=== PATIENT | female | born 1990 | race Caucasian/White ===

== ENCOUNTER 2017-06-13 06:38 | Inpatient (IN) | payer MEDICAID ==
[~2017-06-13] VITALS: Ht 165.1 cm; Wt 75.9 kg
[2017-06-13] MEDS ORDERED: LACTATED RINGER'S 1,000 ML IV SCH (06:50)
[2017-06-13 06:56] VITALS: BP 117/76; PULSE 59; RESP 18
[2017-06-13] MEDS ORDERED: MISOPROSTOL 200 MCG TAB PR PRN ×2 (07:00→13:30)
[2017-06-13] MEDS ORDERED: OXYTOCIN 30 UNITS/LR 500 ML IV PRN ×2 (07:00→13:30)
[2017-06-13] MEDS ORDERED: CEFAZOLIN 2 GM/50 ML (PMX) 50 ML IV SCH (07:00)
[2017-06-13] MEDS ORDERED: METHYLERGONOVINE 0.2 MG INJ IM PRN ×2 (07:00→13:30)
[2017-06-13] MEDS ORDERED: CARBOPROST 250 MCG INJ IM PRN ×2 (07:00→13:30)
[2017-06-13] MEDS ORDERED: OXYTOCIN 30 UNITS/LR 500 ML IV SCH (07:00)
[2017-06-13] MEDS ORDERED: PREN1TAB13 PO (07:24)
[2017-06-13] MEDS ORDERED: FER325 PO (07:25)
[2017-06-13] MEDS ORDERED: CALC600T24 PO (07:25)
[2017-06-13 08:02] LABS: BASOPHILS % 0.2 % (0.0-2.0); EOSINOPHILS # 0.1 10^3/ul (0.0-0.5); EOSINOPHILS % 1.3 % (0.0-7.0); HEMATOCRIT 36.8 % (37.0-47.0); HEMOGLOBIN 12.4 g/dl (12.0-16.0); MEAN CORPUSCULAR HEMOGLOBIN 30.2 pg (29.0-33.0); MEAN CORPUSCULAR HGB CONC 33.7 g/dl (32.0-37.0); MEAN CORPUSCULAR VOLUME 89.5 fl (82.0-101.0); MEAN PLATELET VOLUME 11.9 fl (7.4-10.4); MONOCYTE # 0.8 10^3/ul (0.3-0.9); MONOCYTES % 8.4 % (0.0-11.0); NEUTROPHIL # 6.1 10^3/ul (1.6-7.5); NEUTROPHILS % 67.9 % (39.0-77.0); PLATELET COUNT 171 10^3/UL (140-415); RED BLOOD COUNT 4.11 10^6/ul (4.20-5.40); RED CELL DISTRIBUTION WIDTH 13.4 % (11.5-14.5); WHITE BLOOD COUNT 9.1 10^3/ul (4.8-10.8)
[2017-06-13 09:03] LABS: INR 0.89; PT RATIO 0.9
[2017-06-13 09:04] LABS: PARTIAL THROMBOPLASTIN TIME 28.3 Sec (25.0-35.0)
[2017-06-13] MEDS ORDERED: ONDANSETRON 4 MG INJ ONE (09:39)
[2017-06-13] MEDS ORDERED: METOCLOPRAMIDE 10 MG INJ ONE (09:39)
[2017-06-13] MEDS ORDERED: morphine SULFATE/PF (10 MG/10 ML) INJ ONE (09:40)
[2017-06-13] MEDS ORDERED: DEXAMETHASONE 4 MG/ML 1 ML INJ ONE (09:40)
[2017-06-13] MEDS ORDERED: PHENYLephrine (100 MCG/ML) 5ML SYG ONE (09:40)
[2017-06-13] MEDS ORDERED: KETOROLAC 30 MG INJ ONE (09:40)
[2017-06-13] MEDS ORDERED: OXYTOCIN 10 UNIT INJ ONE ×2 (09:40)
[2017-06-13] MEDS ORDERED: CITRIC ACID/NA CITRATE 30 ML CUP ONE (09:43)
[2017-06-13] MEDS ORDERED: CITRIC ACID/NA CITRATE 30 ML CUP PO ONE (09:50)
[2017-06-13] MEDS ORDERED: NALOXONE (0.4 MG/ML) INJ IV PRN (10:30)
[2017-06-13] MEDS ORDERED: KETOROLAC 30 MG INJ IV PRN (10:30)
[2017-06-13] MEDS ORDERED: ACETAMINOPHEN 500 MG TAB PO PRN (10:30)
[2017-06-13] MEDS ORDERED: morphine 2 MG INJ IV PRN (10:30)
[2017-06-13] MEDS ORDERED: HYDROmorphONE 0.5 MG/0.5 ML SYG IV PRN ×2 (10:30)
[2017-06-13] MEDS ORDERED: DIPHENHYDRAMINE 50 MG INJ IV PRN (10:30)
[2017-06-13] MEDS ORDERED: ONDANSETRON 4 MG INJ IV PRN (10:30)
[2017-06-13] MEDS ORDERED: morphine 4 MG/ML VIAL IV PRN (10:30)
[2017-06-13] MEDS ORDERED: KETOROLAC 15 MG INJ IV PRN (10:30)
[2017-06-13] MEDS ORDERED: NALBUPHINE HCL (10 MG/1 ML) INJ IV PRN (10:30)
[2017-06-13] MEDS ORDERED: HYDROCODONE/APAP (5/325) TAB PO PRN (10:30)
--- NOTE | 2017-06-13 10:46 | HP ---
Date/Time of Note Date/Time of Note DATE: 06/13/17 TIME: 10:45 OB - History Hx of Present Free Text/Dictation 39+wks ,previous c/section scheduled Care: None Ultrasounds: Normal mid trimester US Obstetrical Complications: None Medical Complications: None Past Family/Social History * Past Medical, Surgical, Family and Obstetric Histories reviewed from chart. OB Admission Exam Vital Signs Vital Signs Vital Signs Date Time Temp Pulse Resp B/P Pulse Ox O2 Delivery O2 Flow Rate FiO2 06/13/17 06:56 98.6 59 18 117/76 Room Air Physical Exam Heart: Rhythm Normal Abdomen: WNL Extremities: Normal Reflexes: Normal Membranes: Intact Heart Rate: 140's Accelerations: Accelerations Present Decelerations: No Decelerations Varibility: Moderate Contractions on Admission: None Last 72 hours Lab Results CBC & BMP 06/13/17 07:15 OB Assessment/Plan Reason for admission: section Plan: Section GARRISON BELLA M.D. Jun 13, 2017 10:46
--- NOTE | 2017-06-13 10:47 | OPPN ---
Date/Time of Note Date/Time of Note DATE: 06/13/17 TIME: 10:46 Operative Report Preoperative Diagnosis 39+wks ,previous c/section scheduled Postoperative Diagnosis 39+wks ,previous c/section scheduled Operation/Procedure Performed Repeat c/section Surgeon see signature line assistant curator Anesthesia: spinal Estimated blood loss: other (500) Transfusion Required none Specimen placenta Grafts/Implants none Complications none GARRISON BELLA M.D. Jun 13, 2017 10:47
--- NOTE | 2017-06-13 10:48 | OPR ---
Operative Report Planned Procedure Free Text/Dictation 39+wks ,previous c/section scheduled Procedure date Jun 13, 2017 Procedure(s) Repeat c/section Performed by see signature line Assisting provider: GARRISON BELLA M.D. Anesthesiologist: MARGIE JOHNSON MD Pre-procedure diagnosis 39+wks ,previous c/section scheduled Anesthesia Type: spinal Procedure Description Under satisfactory [] anesthesia, the patient was prepped and draped and placed in a supine position, tilted to the left. Pfannenstiel incision was made, carried through the subcutaneous tissue. Bleeders brought under control with electrocautery. Fascia incised to the length of the incision. Rectus muscles from the fascia, divided midline. Peritoneum exposed, entered through a transverse incision. Exploration of abdomen revealed gravid uterus. Bladder flap was developed. Transverse incision was made in the lower segment of the uterus. Amniotic sac ruptured. [] amniotic fluid noted. [] Nasal oropharyngeal suction was performed. The baby was handed to the team for immediate attention. The placenta was delivered manually intact. Uterine cavity was cleaned with wet sponge and drainage established. Uterus closed in 2 layers using [] in continuous fashion. Peritoneal cavity irrigated with warm saline. Sponge, needle and instrument count reported to be correct. Abdominal peritoneum closed with [] continuously. Rectus muscle approximated with []. Fascia closed with [], and skin closed with dermoband. Estimated blood loss [600 ]mL. Urine bag contained []mL of urine Post-Procedure Findings: Live Baby [], Apgars [] and [], weight [], position [], [] presentation []cord. Specimen(s): yes (see below) (placenta) Grafts/Implants: no Complication(s): no Disposition: PACU Physician Certification I, the undersigned physician, hereby certify that I have discussed the procedure described in this consent form with this patient (or the patient's legal transportation services representative), including: * The risk and benefits of the procedure; * Any adverse reactions that may reasonably be expected to occur; * Any alternative efficacious methods of treatment which may be medically viable ; * The potential problems that may occur during recuperation; * Potential for blood transfusion and associated risks/benefits; and * Any research or economic interest I may have regarding this treatment. I further certify that the patient/legally responsible person was encouraged to ask question and that all questions were answered. GARRISON BELLA M.D. Jun 13, 2017 10:48
[2017-06-13 12:50] VITALS: BP 120/81; PULSE 79; RESP 18
[2017-06-13 13:30] VITALS: BP 126/73; RESP 18
[2017-06-13] MEDS ORDERED: LANOLIN 7 GM TUBE TOP PRN (13:30)
[2017-06-13] MEDS ORDERED: OXYCODONE/ACETAMINOPHEN (5/325) TAB PO PRN (13:30)
[2017-06-13 14:45] VITALS: BP 115/76; PULSE 71; RESP 18
[2017-06-13 16:00] VITALS: BP_SYST 110; BP_SYST 125; BP_DIAS 75; BP_DIAS 78; PULSE 63; PULSE 79; RESP 18
[2017-06-13] MEDS: LACTATED RINGER'S 1,000 ML IV SCH (16:59)
[2017-06-13 19:30] VITALS: BP 114/64; PULSE 64; RESP 18
[2017-06-13] MEDS: SENNA/DOCUSATE NA (8.6MG/50MG) TAB PO SCH (20:58)
[2017-06-14] MEDS: LACTATED RINGER'S 1,000 ML IV SCH ×4 (00:34→21:22)
[2017-06-14 04:10] VITALS: BP 101/62; PULSE 65; RESP 18
[2017-06-14 07:30] VITALS: BP 113/72; PULSE 59; RESP 16
[2017-06-14 09:13] LABS: BASOPHILS % 0.2 % (0.0-2.0); EOSINOPHILS # 0.1 10^3/ul (0.0-0.5); EOSINOPHILS % 0.4 % (0.0-7.0); HEMOGLOBIN 11.3 g/dl (12.0-16.0); LYMPHOCYTES # 2.6 10^3/ul (0.8-2.9); LYMPHOCYTES % 21.7 % (15.0-51.0); MEAN CORPUSCULAR HEMOGLOBIN 28.7 pg (29.0-33.0); MEAN CORPUSCULAR HGB CONC 32.3 g/dl (32.0-37.0); MEAN CORPUSCULAR VOLUME 88.8 fl (82.0-101.0); MEAN PLATELET VOLUME 11.2 fl (7.4-10.4); NEUTROPHIL # 8.2 10^3/ul (1.6-7.5); NEUTROPHILS % 69.3 % (39.0-77.0); PLATELET COUNT 180 10^3/UL (140-415); RED BLOOD COUNT 3.94 10^6/ul (4.20-5.40); RED CELL DISTRIBUTION WIDTH 13.3 % (11.5-14.5); WHITE BLOOD COUNT 11.9 10^3/ul (4.8-10.8)
[2017-06-14] MEDS: SENNA/DOCUSATE NA (8.6MG/50MG) TAB PO SCH ×2 (09:19→21:20)
[2017-06-14] MEDS: IBUPROFEN 600 MG TAB PO SCH ×2 (12:18→17:24)
--- NOTE | 2017-06-14 15:00 | QN ---
Documentation Comment POD#1 is stable afebrile No VB +Flatus +Adequate urine VS stable Gen NAD Abd soft NT ND Genitalia No blood at perinium --->discharge plan tomorrow GARRISON BELLA M.D. Jun 14, 2017 15:00
[2017-06-14] MEDS ORDERED: CITRIC ACID/NA CITRATE 30 ML CUP PO ONE (15:30)
[2017-06-14 16:00] VITALS: BP 104/61; PULSE 49; RESP 16
[2017-06-14 20:00] VITALS: BP 127/62; PULSE 69; RESP 18
[2017-06-15 03:50] VITALS: BP 115/56; PULSE 69; RESP 19
[2017-06-15] MEDS: LACTATED RINGER'S 1,000 ML IV SCH (04:52)
[2017-06-15] MEDS: IBUPROFEN 600 MG TAB PO SCH ×4 (05:52→17:16)
[2017-06-15 07:45] VITALS: BP 105/67; PULSE 61; RESP 18
[2017-06-15] MEDS: SENNA/DOCUSATE NA (8.6MG/50MG) TAB PO SCH ×2 (08:36→21:09)
[2017-06-15 16:00] VITALS: BP 111/61; PULSE 73; RESP 18
[2017-06-15 20:00] VITALS: BP 106/56; PULSE 59; RESP 18
[2017-06-16 04:00] VITALS: BP 122/70; PULSE 67; RESP 18
[2017-06-16] MEDS: IBUPROFEN 600 MG TAB PO SCH ×3 (05:52→12:33)
[2017-06-16 07:30] VITALS: BP 109/70; PULSE 65; RESP 18
[2017-06-16] MEDS ORDERED: DIPHTH/TET/ACEL PERTUSS (ADULT) 0.5 ML VIAL IM* ONE (09:00)
[2017-06-16] MEDS: SENNA/DOCUSATE NA (8.6MG/50MG) TAB PO SCH (09:00)
[2017-06-16] MEDS: LACTATED RINGER'S 1,000 ML IV SCH ×2 (09:48→09:49)
[2017-06-16] MEDS ORDERED: INFLUENZA VIRUS VACCINE 0.5 ML (DISPENSING) IM* ONE (11:30)
== END 2017-06-16 15:53 | disposition home or self-care (01) | DRG 766 ==
LOC: L-D 06:38 → PP1 13:01
PROVIDERS: ADMIT Obstetrics & Gynecology; ATTEND Obstetrics & Gynecology
PROC: 3E0P3VZ Introduction of Hormone into Female Reproductive, Percutaneous Approach (ICD-10-PCS; 2017-06-13)
PROC: 10D00Z1 Extraction of Products of Conception, Low, Open Approach (ICD-10-PCS; principal; 2017-06-13 09:00)
DX: O34.211 Maternal care for low transverse scar from previous cesarean delivery (principal); Z37.0 Single live birth; Z3A.39 39 weeks gestation of pregnancy
CPT/HCPCS: 85025; 85610; 85730; 86592; 86850; 86900; 86901; 87340; 90686; 90715; 99464; J0690; J1100; J1885; J2274; J2370; J2405; J2590; J2765; J7120

== ENCOUNTER 2017-07-20 16:51 | Emergency (ER) | payer MEDICAID ==
[~2017-07-20] VITALS: Ht 167.6 cm; Wt 69.3 kg
[2017-07-20 16:59] VITALS: Ht 167.6 cm; Wt 69.3 kg
--- NOTE | 2017-07-20 17:40 | ERD ---
ER Documentation Chief Complaint Chief Complaint pain/resness oozing at site HPI 26-year-old female presents emergency department for pain, with purulent discharge to the right side of her site. on June 13. At [facility] that was done by Dr. Beto William. Went to an urgent care clinic 3 days ago due to swelling, redness to the right side of her site. Was informed by the provider at that clinic that the redness was due to an allergic reaction but she was prescribed with antibiotics with unknown name. Stated that yesterday she felt that the right side of her C- section popped with a mucopurulent discharge. A0. ROS All systems reviewed and are negative except as per history of present illness. Medications Home Meds Active Scripts Acetaminophen* (Tylophen*) 500 Mg Capsule, 1 CAP PO Q6H Y for PAIN AND OR ELEVATED TEMP, #20 CAP Prov:PASILABAN,JULIANAR F 07/20/17 Ibuprofen* (Motrin*) 800 Mg Tab, 800 MG PO Q8 Y for PAIN AND OR ELEVATED TEMP, # 30 TAB Prov:PASILABAN,JULIANAR F 07/20/17 Sulfamethoxazole/Trimethoprim* (Bactrim Ds* Tablet) 1 Each Tablet, 1 TAB PO BID for 7 Days, #14 TAB Prov:BROOKLYNILABAN,JULIANAR F 07/20/17 Cephalexin* (Keflex*) 500 Mg Capsule, 500 MG PO QID for 5 Days, CAP Prov:PASILABAN,KLAR F 07/20/17 Allergies Allergies: Coded Allergies: No Known Allergy (Unverified , 07/20/17) PMhx/Soc Medical and Surgical Hx: pt denies Medical Hx, pt denies Surgical Hx Hx Alcohol Use: No Hx Substance Use: No Hx Tobacco Use: No Smoking Status: Never smoker Physical Exam Vitals Vital Signs Date Time Temp Pulse Resp B/P Pulse Ox O2 Delivery O2 Flow Rate FiO2 07/20/17 16:59 99.6 68 18 145/50 96 Physical Exam Const: In mild distress due to her abdominal pain. Head: Atraumatic Eyes: Normal Conjunctiva ENT: Normal External Ears, Nose and Mouth. Neck: Full range of motion..~ No meningismus. Resp: Clear to auscultation bilaterally Cardio: Regular rate and rhythm, no murmurs Abd: Soft, non tender, non distended. Normal bowel sounds Skin: No petechiae or rashes. site has mild redness. Mild purulent discharge the right side. No dehiscence. No calor. Back: No midline or flank tenderness Ext: No cyanosis, or edema Neur: Awake and alert Psych: Normal Mood and Affect Result Diagram: 07/20/17 1805 07/20/17 180 Results 24 hrs Laboratory Tests Test 07/20/17 17:36 07/20/17 17:50 07/20/17 18:05 Serum HCG, Qualitative NEGATIVE Urine Color STRAW Urine Clarity CLEAR Urine pH 6.0 Urine Specific [place] 1.008 Urine Ketones NEGATIVEmg/dL Urine Nitrite NEGATIVEmg/dL Urine Bilirubin NEGATIVEmg/dL Urine Urobilinogen NEGATIVEmg/dL Urine Leukocyte Esterase NEGATIVELeu/ul Urine Hemoglobin NEGATIVEmg/dL Urine Glucose NEGATIVEmg/dL Urine Total Protein NEGATIVEmg/dl White Blood Count 10.410^3/ul Red Blood Count 4.6510^6/ul Hemoglobin 13.2g/dl Hematocrit 40.6% Mean Corpuscular Volume 87.3fl Mean Corpuscular Hemoglobin 28.4pg Mean Corpuscular Hemoglobin Concent 32.5g/dl Red Cell Distribution Width 12.4% Platelet Count 60728^3/UL Mean Platelet Volume 9.9fl Neutrophils % 63.2% Lymphocytes % 26.8% Monocytes % 7.0% Eosinophils % 2.5% Basophils % 0.2% Nucleated Red Blood Cells % 0.0/100WBC Neutrophils # 6.610^3/ul Lymphocytes # 2.810^3/ul Monocytes # 0.710^3/ul Eosinophils # 0.310^3/ul Basophils # 0.010^3/ul Nucleated Red Blood Cells # 0.010^3/ul Sodium Level 142mmol/L Potassium Level 3.7mmol/L Chloride Level 105mmol/L Carbon Dioxide Level 23mmol/L Anion Gap 18 Blood Urea Nitrogen 10mg/dl Creatinine 0.68mg/dl Glucose Level 96mg/dl Calcium Level 9.6mg/dl Total Bilirubin 0.5mg/dl Direct Bilirubin 0.00mg/dl Indirect Bilirubin 0.5mg/dl Aspartate Amino Transf (AST/SGOT) 28IU/L Alanine Aminotransferase (ALT/SGPT) 47IU/L Alkaline Phosphatase 125IU/L Total Protein 8.3g/dl Albumin 4.7g/dl Globulin 3.60g/dl Albumin/Globulin Ratio 1.30 Current Medications Medications (Trade) Dose Ordered Sig/Darlin Route PRN Reason Start Time Stop Time Status Last Admin Dose Admin IV Flush 10 ml 10 ml STK-MED ONCE .ROUTE 07/20/17 19:19 07/20/17 19:20 DC Sodium Chloride (NS) 100 ml @ ud STK-MED ONCE .ROUTE 07/20/17 19:19 07/20/17 19:20 DC Iohexol (Omnipaque 300mg/ ml) 150 ml STK-MED ONCE .ROUTE 07/20/17 19:19 07/20/17 19:20 DC Procedures/MDM Differential diagnosis includes but not limited to abscess formation surgical site infection versus cellulitis versus dehiscence Blood works: Reviewed. Urinalysis: Reviewed. POC urine : Negative. CT of the abdomen and pelvis with IV contrast Impression: At the right incision there is a fluid collection with mild enhancing rim measuring 13 x 9 x 7 mm, adjusting a small abscess. Mild free fluid in the pelvis. The uterus is retroverted, with a incision site at its anterior border. Nonspecific mild small bowel ileus. Otherwise, no acute process in the abdomen or pelvis. Case and diagnostic test results were discussed with supervising emergency room physician, Dr. Herbie Maldonado who suggested for me to call the OB/drying rack changer who performed the . school attendance secretary paged OB/drying rack changer, Dr. Beto Cornejo who is unable to be reached. Dr. Herbie Maldonado also examined the patient. He explained to the patient the disease process. We both agreed that patient could be discharged with Keflex and Bactrim and have her follow-up with OB/gynecology/surgeon on Saturday. I have no suspicion for dehiscence due to physical exam. I have low suspicion for sepsis due to patient's vital signs and blood works. Diagnosis: Abscess formation Follow-up with surgeon/OB/drying rack changer, Dr. Beto Cornejo on Saturday. Dr. Beto Cornejo number is . Come back here in the emergency department for any new symptoms or any worsening of symptoms. All questions and concerns are answered. Hemodynamically stable on discharge. Departure Diagnosis: Primary Impression: Post op infection Additional Impressions: Encounter for wound re-check Abscess Condition: Stable Additional Instructions: Follow-up with surgeon/OB/drying rack changer, Dr. Beto Cornejo on Saturday. Dr. Beto Cornejo number is . Come back here in the emergency department for any new symptoms or any worsening of symptoms. All questions and concerns are answered. NIGEL TOSCANO Jul 20, 2017 17:40
[2017-07-20 18:31] LABS: BASOPHILS % 0.2 % (0.0-2.0); EOSINOPHILS # 0.3 10^3/ul (0.0-0.5); EOSINOPHILS % 2.5 % (0.0-7.0); HEMATOCRIT 40.6 % (37.0-47.0); HEMOGLOBIN 13.2 g/dl (12.0-16.0); LYMPHOCYTES # 2.8 10^3/ul (0.8-2.9); LYMPHOCYTES % 26.8 % (15.0-51.0); MEAN CORPUSCULAR HEMOGLOBIN 28.4 pg (29.0-33.0); MEAN CORPUSCULAR HGB CONC 32.5 g/dl (32.0-37.0); MEAN CORPUSCULAR VOLUME 87.3 fl (82.0-101.0); MEAN PLATELET VOLUME 9.9 fl (7.4-10.4); MONOCYTE # 0.7 10^3/ul (0.3-0.9); NEUTROPHIL # 6.6 10^3/ul (1.6-7.5); NEUTROPHILS % 63.2 % (39.0-77.0); PLATELET COUNT 294 10^3/UL (140-415); RED BLOOD COUNT 4.65 10^6/ul (4.20-5.40); RED CELL DISTRIBUTION WIDTH 12.4 % (11.5-14.5); WHITE BLOOD COUNT 10.4 10^3/ul (4.8-10.8)
[2017-07-20 18:40] LABS: ADD UMIC NO; UR ASCORBIC ACID NEGATIVE (NEGATIVE); UR BILIRUBIN (Dip) NEGATIVE (NEGATIVE); UR BLOOD (Dip) NEGATIVE (NEGATIVE); UR CLARITY CLEAR (CLEAR); UR COLOR STRAW (YELLOW); UR GLUCOSE (Dip) NEGATIVE (NEGATIVE); UR KETONES (Dip) NEGATIVE (NEGATIVE); UR LEUKOCYTE ESTERASE (Dip) NEGATIVE Leu/ul (NEGATIVE); UR NITRITE (Dip) NEGATIVE (NEGATIVE); UR SPECIFIC GRAVITY (Dip) 1.008 (1.003-1.030); UR TOTAL PROTEIN (Dip) NEGATIVE (NEGATIVE); UR UROBILINOGEN (Dip) NEGATIVE (NEGATIVE)
[2017-07-20 18:43] LABS: ALBUMIN 4.7 g/dl (3.3-4.9); ALBUMIN/GLOBULIN RATIO 1.3; BILIRUBIN,INDIRECT 0.5 mg/dl (0-1.1); BILIRUBIN,TOTAL 0.5 mg/dl (0.2-1.3); CALCIUM 9.6 mg/dl (8.4-10.2); CREATININE 0.68 mg/dl (0.44-1.00); POTASSIUM 3.7 mmol/L (3.5-5.1); TOTAL PROTEIN 8.3 g/dl (6.1-8.1)
[2017-07-20] MEDS ORDERED: SOD CHLORIDE 0.9% 100 ML ONE (19:19)
[2017-07-20] MEDS ORDERED: IOHEXOL 300MG/ML 150 ML BTL ONE (19:19)
--- NOTE | 2017-07-20 20:04 | RADRPT ---
PROCEDURE: CT abdomen and pelvis with contrast. CLINICAL INDICATION: Mild discharge at recent site. TECHNIQUE: IV contrast enhanced CT examination of the abdomen and pelvis, with axial, sagittal and coronal reformatted images. 100 cc Isovue 300 nonionic IV contrast were employed. Automated dose e xposure control was employed. CTDI: 8.45 mGy and DLP: 476.70 mGy-cm. COMPARISON: None. FINDINGS: CT abdomen: The lung bases are clear. The heart size is normal, without pericardial thickening or effusion. The liver is normal in size and density without focal mass or intrahepatic biliary dilatation. The spleen is normal in size and homogeneous in density. The stomach is partially collapsed, but is lety ssly unremarkable. The pancreas as visualized is normal. The gallbladder and biliary tree are unre markable and there is no evidence for biliary dilatation. The adrenal glands are symmetric and norm al. The kidneys are symmetrically unremarkable as well. No renal calculus or obstructive uropathy o r mass lesion is seen. The aorta is of normal caliber. Aortic vascular calcifications are not present. There is no retrop eritoneal lymphadenopathy. The dre hepatis region is clear. Scattered air in the small bowel is compatible with nonspecific mild small bowel ileus. The bowel an d mesentery are otherwise unremarkable. CT pelvis: At the right incision there is a fluid collection with mild enhancing rim measuring 30 x 9 x 7 mm, suggesting a small abscess. No evident fluid within the abdominal rectus to suggest intramu scular abscess. Mild free fluid in the pelvis. The uterus is retroverted, with a incision site at its anterior border. Scattered air within the small bowel compatible with nonspecific mild small bowel ileus. The pelvic organs are otherwise normal. The pelvic sidewalls and inguinal regions are clear. The sigmoid col on and rectum are all unremarkable. No evident mass or adenopathy. No acute inflammation is seen. The appendix is unremarkable. The surrounding osseous structures are remarkable for mild degenerative spondylosis of the spine. N o osteolytic or osteoblastic lesion is detected. IMPRESSION: 1. At the right incision there is a fluid collection with mild enhancing rim measuring 30 x 9 x 7 mm, suggesting a small abscess. 2. Mild free fluid in the pelvis. 3. The uterus is retroverted, with a incision site at its anterior border. 4. Nonspecific mild small bowel ileus. 5. Otherwise, no acute process in the abdomen or pelvis. RPTAT: [facility]U Tracy Michelle Physician Date Time Electronically viewed and signed by Tracy Michelle Physician on 07/20/2017 20:04 RS/
[2017-07-20] MEDS ORDERED: SULF1TAB31 PO (21:10)
[2017-07-20] MEDS ORDERED: CEPH-443 PO (21:10)
[2017-07-20] MEDS ORDERED: ACET500C5 PO (21:11)
[2017-07-20] MEDS ORDERED: IBUP800T25 PO (21:11)
== END 2017-07-20 21:37 | disposition home or self-care (01) ==
LOC: FTE 16:51
DX: T81.4XXA Infection following a procedure, initial encounter (principal); L02.211 Cutaneous abscess of abdominal wall; Y82.8 Other medical devices associated with adverse incidents
CPT/HCPCS: 74177; 80053; 81003; 84703; 85025; Q9967; Z7502; Z7610